=== PATIENT | male | born 1975 | race Caucasian/White ===

== ENCOUNTER 2018-11-23 20:44 | Emergency (ER) | payer OTHER ==
[~2018-11-23] VITALS: Ht 165.1 cm; Wt 79.5 kg
[2018-11-23] MEDS ORDERED: GABA-531 PO (21:10)
[2018-11-23] MEDS ORDERED: DOCU-275 PO (21:10)
[2018-11-23] MEDS ORDERED: CYCL5TAB PO (21:10)
[2018-11-23] MEDS ORDERED: TRAM50TA4 PO (21:11)
[2018-11-23] MEDS ORDERED: HYDR-4061 PO (21:11)
[2018-11-23] MEDS ORDERED: LORA-703 PO (21:11)
[2018-11-23] MEDS ORDERED: OMEP-50 PO (21:11)
[2018-11-23 21:20] LABS: GLUCOSE,POINT OF CARE 217 MG/DL (70-110)
[2018-11-23] MEDS ORDERED: SODIUM CHLORIDE 0.9% 1,000 ML IV ONE (21:22)
[2018-11-23] MEDS ORDERED: MECLIZINE HCL 25 MG TABLET PO ONE (21:30)
[2018-11-23] MEDS ORDERED: ONDANSETRON HCL 4 MG/2 ML VIAL IVP ONE (21:30)
[2018-11-23 21:36] LABS: BASOPHILS % (AUTO) 1.3 % (0.0-2.0); EOSINOPHILS % (AUTO) 1.1 % (1.0-6.0); HEMATOCRIT 39.2 % (41-53); HEMOGLOBIN 13.7 g/dL (13.5-17.5); LYMPHOCYTES # (AUTO) 1.5 K/uL (1.0-4.8); LYMPHOCYTES % (AUTO) 34.9 % (22.0-44.0); MEAN CORPUSCULAR HEMOGLOBIN 33.8 pg (26.0-34.0); MEAN CORPUSCULAR HGB CONC 34.9 G/dL (31.0-37.0); MEAN CORPUSCULAR VOLUME 97 fL (80-100); MONOCYTES # (AUTO) 0.4 K/uL (0.1-1.0); MONOCYTES % (AUTO) 8.6 % (2.0-9.0); NEUTROPHILS # (AUTO) 2.3 K/uL (1.8-7.7); NEUTROPHILS % (AUTO) 54.1 % (40.0-70.0); PLATELET COUNT (AUTO) 222 K/uL (150-450); RED BLOOD CELL COUNT(AUTO) 4.04 MIL/uL (4.50-5.90); RED CELL DISTRIBUTION WIDTH 12.9 % (11.5-14.5)
[2018-11-23 21:45] LABS: ANION GAP 8 mmol/L (8-16); CARBON DIOXIDE 27 mmol/L (22-29); CHLORIDE 106 mmol/L (98-107); CREATININE 0.92 mg/dL (0.60-1.30); GLOMERULAR FILTR. RATE CALC > 60 mL/min (>60); GLUCOSE,RANDOM 236 mg/dL (70-110); POTASSIUM 3.3 mmol/L (3.5-5.1); SODIUM SERUM 141 mmol/L (136-145); UREA NITROGEN, BLOOD 16 mg/dL (7-18)
[2018-11-23 21:51] LABS: ALANINE AMINOTRANSFERASE 44 U/L (12-78); ALBUMIN 4.2 g/dL (3.4-5.0); ALKALINE PHOSPHATASE 74 U/L (46-116); ASPARTATE AMINOTRANSFERASE 23 U/L (15-37); BILIRUBIN,TOTAL 0.5 mg/dL (0.1-1.0); TOTAL PROTEIN, SERUM 6.9 g/dL (6.4-8.2)
[2018-11-23 21:52] LABS: APPEARANCE,URINE CLEAR (CLEAR); BILIRUBIN,URINE NEGATIVE (NEGATIVE); GLUCOSE, URINE (UA) >=1000 mg/dL (NEGATIVE); KETONES,URINE NEGATIVE (NEGATIVE); LEUKOCYTE ESTERASE ,URINE NEGATIVE (NEGATIVE); NITRATE,URINE NEGATIVE (NEGATIVE); OCCULT BLOOD,URINE NEGATIVE (NEGATIVE); PH,URINE 5.5 (5.0-8.0); PROTEIN,URINE NEGATIVE (NEGATIVE)
[2018-11-23 22:01] LABS: BACTERIA,URINE Rare /HPF (None Seen); RBC,URINE None Seen /HPF (0-2); SQUAMOUS EPITHELIAL CELL,UR Few /LPF (None Seen); WBC,URINE None Seen /HPF (0-5)
[2018-11-23] MEDS ORDERED: POTASSIUM CHLORIDE 20 MEQ ER TABLET PO ONE (22:30)
[2018-11-23 23:00] VITALS: BP 138/88
== END 2018-11-23 23:17 | disposition home or self-care (01) ==
LOC: EMS 20:46
DX: R42 Dizziness and giddiness (principal); E11.9 Type 2 diabetes mellitus without complications
CPT/HCPCS: 36415; 80053; 81001; 82962; 84484; 85025; 93005; 96374; 99285; J2405; J7030

== ENCOUNTER 2020-03-26 17:40 | Emergency (ER) | payer OTHER ==
[~2020-03-26] VITALS: Ht 165.1 cm; Wt 81.8 kg
[~2020-03-26 17:40] MED LIST: CYCL5TAB PO; DOCU-275 PO; GABA-531 PO; HYDR-4061 PO; LORA-550 PO; OMEP20CA12 PO; TRAM50TA4 PO
[2020-03-26] MEDS ORDERED: ASPI-989 PO (17:56)
[2020-03-26] MEDS ORDERED: METF-960 PO (17:56)
[2020-03-26 18:54] LABS: BASOPHILS % (AUTO) 1.1 % (0.0-2.0); EOSINOPHILS % (AUTO) 2.5 % (1.0-6.0); HEMATOCRIT 42.2 % (41-53); HEMOGLOBIN 14.7 g/dL (13.5-17.5); LYMPHOCYTES # (AUTO) 2.1 K/uL (1.0-4.8); LYMPHOCYTES % (AUTO) 41.5 % (22.0-44.0); MEAN CORPUSCULAR HEMOGLOBIN 33.7 pg (26.0-34.0); MEAN CORPUSCULAR HGB CONC 34.8 G/dL (31.0-37.0); MEAN CORPUSCULAR VOLUME 97 fL (80-100); MONOCYTES # (AUTO) 0.4 K/uL (0.1-1.0); MONOCYTES % (AUTO) 7.1 % (2.0-9.0); NEUTROPHILS # (AUTO) 2.4 K/uL (1.8-7.7); NEUTROPHILS % (AUTO) 47.8 % (40.0-70.0); PLATELET COUNT (AUTO) 238 K/uL (150-450); RED BLOOD CELL COUNT(AUTO) 4.35 MIL/uL (4.50-5.90)
[2020-03-26 19:24] LABS: ANION GAP 10 mmol/L (8-16); CALCIUM, TOTAL 8.6 mg/dL (8.8-10.5); CARBON DIOXIDE 27 mmol/L (22-29); CHLORIDE 101 mmol/L (98-107); CREATININE 0.94 mg/dL (0.60-1.30); GLOMERULAR FILTR. RATE CALC > 60 mL/min (>60); GLUCOSE,RANDOM 218 mg/dL (70-110); POTASSIUM 4.1 mmol/L (3.5-5.1); SODIUM SERUM 138 mmol/L (136-145); UREA NITROGEN, BLOOD 15 mg/dL (7-18)
[2020-03-26 19:29] LABS: ALANINE AMINOTRANSFERASE 51 U/L (12-78); ALKALINE PHOSPHATASE 84 U/L (46-116); ASPARTATE AMINOTRANSFERASE 25 U/L (15-37); BILIRUBIN,TOTAL 0.5 mg/dL (0.1-1.0); TOTAL PROTEIN, SERUM 7.3 g/dL (6.4-8.2)
[2020-03-26 20:01] VITALS: BP 141/93
[2020-03-26 20:52] LABS: GLUCOSE,POINT OF CARE 172 MG/DL (70-110)
== END 2020-03-26 22:00 | disposition left against medical advice (07) ==
LOC: EMS 17:40
DX: R07.9 Chest pain, unspecified (principal); Z53.21 Procedure and treatment not carried out due to patient leaving prior to being seen by health care provider
CPT/HCPCS: 93005; 36415-L1; 36415-TC; 71045-TC

== ENCOUNTER 2023-11-11 17:29 | Emergency (ER) | payer OTHER ==
[~2023-11-11] VITALS: Ht 170.2 cm; Wt 80.9 kg
[~2023-11-11 17:29] MED LIST changes: +CIPR500T10 PO; +CYCL-448 PO; -CYCL5TAB PO; -DOCU-275 PO; +DOCU-385 PO; +GABA-1181 PO; -GABA-531 PO; -HYDR-4061 PO; +INSREG SQ; -LORA-550 PO; +LORA10TA7 PO; +METF-1211 PO; +METR500 PO; +OMEP20 PO; -OMEP20CA12 PO
[2023-11-11] MEDS ORDERED: ATOR40TA71 PO (17:38)
[2023-11-11] MEDS ORDERED: OMEP20CA12 PO (17:38)
[2023-11-11] MEDS ORDERED: OMEG10005 PO (17:38)
[2023-11-11] MEDS ORDERED: METF-1211 PO (17:38)
[2023-11-11] MEDS ORDERED: ASPI-1450 PO (17:38)
[2023-11-11] MEDS ORDERED: GLIM2TAB35 PO (17:38)
[2023-11-11] MEDS: TraMADol HCL 50 MG TABLET PO ONE (22:24)
[2023-11-11] MEDS: LIDOCAINE 1% 10 ML VIAL SQ ONE (22:24)
[2023-11-11] MEDS: CLINDAMYCIN PHOS 150 MG/ML 4 ML VIAL IM ONE (22:31)
[2023-11-11 22:33] LABS: EOSINOPHILS % (AUTO) 2.4 % (1.0-6.0); HEMATOCRIT 40.3 % (41-53); HEMOGLOBIN 13.9 g/dL (13.5-17.5); LYMPHOCYTES % (AUTO) 41.4 % (22.0-44.0); MEAN CORPUSCULAR HEMOGLOBIN 33.5 pg (26.0-34.0); MEAN CORPUSCULAR HGB CONC 34.4 G/dL (31.0-37.0); MEAN CORPUSCULAR VOLUME 97 fL (80-100); MONOCYTES # (AUTO) 0.4 K/uL (0.1-1.0); MONOCYTES % (AUTO) 8.1 % (2.0-9.0); NEUTROPHILS # (AUTO) 2.2 K/uL (1.8-7.7); NEUTROPHILS % (AUTO) 47.1 % (40.0-70.0); PLATELET COUNT (AUTO) 208 K/uL (150-450); RED BLOOD CELL COUNT(AUTO) 4.14 MIL/uL (4.50-5.90); RED CELL DISTRIBUTION WIDTH 13.3 % (11.5-14.5); WHITE BLOOD COUNT (AUTO) 4.8 K/uL (4.5-11.0)
[2023-11-11 22:40] LABS: ANION GAP 9 mmol/L (8-16); CALCIUM, TOTAL 9.1 mg/dL (8.8-10.5); CARBON DIOXIDE 26 mmol/L (22-29); CHLORIDE 102 mmol/L (98-107); CREATININE 0.82 mg/dL (0.60-1.30); GLOMERULAR FILTR. RATE CALC > 60 mL/min (>60); GLUCOSE,RANDOM 180 mg/dL (70-110); POTASSIUM 3.9 mmol/L (3.5-5.1); SODIUM SERUM 137 mmol/L (136-145); UREA NITROGEN, BLOOD 22 mg/dL (7-18)
[2023-11-12 00:15] VITALS: BP 129/68; PULSE 76; RESP 16; TEMP 97.3
[2023-11-12] MEDS ORDERED: CLIN-142 PO (00:15)
== END 2023-11-12 00:59 | disposition home or self-care (01) ==
LOC: EMS 17:29
DX: L02.512 Cutaneous abscess of left hand (principal); E78.00 Pure hypercholesterolemia, unspecified; E11.9 Type 2 diabetes mellitus without complications; Z96.659 Presence of unspecified artificial knee joint; Z98.890 Other specified postprocedural states
CPT/HCPCS: 99284; 26010; 80048; 82962; 85025; 36415; 73130; 96372; J3490 ×2

== ENCOUNTER 2023-12-10 09:45 | Emergency (ER) | payer OTHER ==
[~2023-12-10] VITALS: Ht 167.6 cm; Wt 79.5 kg
[~2023-12-10 09:45] MED LIST changes: +ASPI-1450 PO; +ATOR40TA71 PO; -CIPR500T10 PO; +CLIN-142 PO; -CYCL-448 PO; -DOCU-385 PO; -GABA-1181 PO; +GLIM2TAB35 PO; -INSREG SQ; -LORA10TA7 PO; -METR500 PO; +OMEG10005 PO; -OMEP20 PO; +OMEP20CA12 PO; -TRAM50TA4 PO
[2023-12-10 09:46] VITALS: BP 138/79; PULSE 58; RESP 18; TEMP 97.8; O2SAT 97
[2023-12-10] MEDS ORDERED: GABA-1181 PO (09:49)
[2023-12-10] MEDS: LIDOCAINE 1% 10 ML VIAL SQ ONE (11:13)
[2023-12-10] MEDS ORDERED: PERCT PO (12:54)
[2023-12-10] MEDS: IBUPROFEN 600 MG TABLET PO ONE (13:10)
== END 2023-12-10 13:12 | disposition home or self-care (01) ==
LOC: EMS 09:45
DX: S61.411A Laceration without foreign body of right hand, initial encounter (principal); E11.9 Type 2 diabetes mellitus without complications; E78.00 Pure hypercholesterolemia, unspecified; Z96.659 Presence of unspecified artificial knee joint; Z98.890 Other specified postprocedural states; W26.8XXA Contact with other sharp object(s), not elsewhere classified, initial encounter; Y93.89 Activity, other specified; Y92.89 Other specified places as the place of occurrence of the external cause; Y99.8 Other external cause status
CPT/HCPCS: 99283; 82962; 12001; J3490